=== PATIENT | female | born 2000 | race Caucasian/White ===

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

== ENCOUNTER 2023-05-01 16:33 | Outpatient (CLI) | payer OTHER, SELFPAY ==
--- NOTE | ~2023-05-01 | US_ITS ---
EXAMINATION: US axilla LT DATE: 05/01/2023 17:20 INDICATION: Palpable lump at the left axilla TECHNIQUE: Multiple grayscale and Doppler ultrasound images of the region of concern at the left axil la were obtained. COMPARISON: None FINDINGS: Normal appearance to the subcutaneous fat, underlying musculature and deeper still humeral head at th e region of concern. No joint effusion. No other abnormal masses or fluid collections identified. IMPRESSION: 1. No abnormal masses or fluid collections identified at the region of concern which overlies the lef t humeral head. Reviewed, dictated and finalized at [facility]. IMPRESSION: 1. No abnormal masses or fluid collections identified at the region of concern which overlies the left humeral head.
== END 2023-05-01 16:34 | disposition home or self-care (01) ==
PROVIDERS: PCP Physician Assistant; Visit Provider Physician Assistant
DX: R22.2 Localized swelling, mass and lump, trunk (principal)
CPT/HCPCS: 76882

== ENCOUNTER 2023-05-27 13:09 | Emergency (ER) | payer OTHER, SELFPAY ==
[2023-05-27 13:26] VITALS: BP 125/59; PULSE 108; RESP 16; TEMP 36.6; O2SAT 100
--- NOTE | 2023-05-27 13:47 | ED.URI ---
HPI - URI/Sore Throat General Chief Complaint: Upper Respiratory Infection Stated Complaint: chest congestion,cough Time Seen by Provider: 05/27/23 13:47 Source: patient and RN notes reviewed Mode of arrival: ambulatory Limitations: no limitations History of Present Illness HPI Narrative: Patient presents today with a one-week history of body aches, cough, wheezing, sore throat, nasal congestion. She has been taking Tylenol, ibuprofen, Sudafed without much relief. She has also been using her albuterol rescue inhaler 2-3 times per day, which does provide some relief. History of asthma Related Data Home Medications Medication Instructions Recorded Confirmed albuterol sulfate 90 mcg/actuation 2 puff inhalation Q4-6H 04/23/20 05/27/23 aerosol inhaler citalopram 20 mg tablet (Celexa) 30 mg PO DAILY 04/23/20 05/27/23 montelukast 10 mg tablet 10 mg PO DAILY 04/23/20 05/27/23 (Singulair) cholecalciferol (vitamin D3) 25 25 mcg PO DAILY 09/24/20 05/27/23 mcg (1,000 unit) capsule multivitamin (Daily Multi-Vitamin 1 tablet PO DAILY 09/24/20 05/27/23 tablet) cyanocobalamin (vitamin B-12) 1,000 mcg PO DAILY 05/27/23 05/27/23 1,000 mcg tablet Allergies Allergy/AdvReac Type Severity Reaction Status Date / Time Quinolones Allergy Unknown Other Verified 06/14/21 14:39 amoxicillin [From Augmentin] AdvReac Mild hives Verified 06/14/21 14:39 clavulanic acid AdvReac Mild hives Verified 06/14/21 14:39 [From Augmentin] Review of Systems Review of Systems: CONSTITUTIONAL: Denies fever, chills, or sweats.+ body aches EYES: Denies visual changes, redness, or discharge. ENT: Denies rhinorrhea, or otalgia.+ congestion, sore throat CARDIOVASCULAR: Denies chest pain, palpitations, or edema. RESPIRATORY: + cough, wheezing GASTROINTESTINAL: Denies abdominal pain, nausea, vomiting, or diarrhea. GENITOURINARY: Denies dysuria or hematuria. SKIN: Denies rash, itching, or wounds. MUSCULOSKELETAL: Denies back pain, joint pain, or myalgia. NEUROLOGIC: Denies headache, numbness, tingling, or weakness. PSYCH: Denies depression or anxiety. [facility] Past Medical History Medical History Acid reflux Anxiety Asthma COVID-19 06/19 Depression Dysmenorrhea Menorrhagia Ovarian cyst Ovarian cyst Surgical History Surgical History [place] teeth removed Family History Family History Grandparent Blood clotting disorder Diabetes mellitus Hypertension Thyroid cancer Fibroid tumor FHx: kidney cancer Other No active medical problems Social History Social History Smoking status: Never smoker Alcohol intake: never Substance use: never Living arrangements: with family Occupation/Education: student Gender identity (if verbalized by the patient): Female Spiritual care concerns: No Comments Reviewed Exam Narrative: GENERAL: Well-appearing, well-nourished, and in no acute distress. HEAD: Normocephalic, atraumatic. EYES: EOMI. No redness or drainage. Conjunctivae normal. ENT: Mucous membranes pink and moist. Nares congested. No rhinorrhea. TMs normal bilaterally. Throat mildly erythematous with white postnasal drainage. Uvula midline. NECK: Normal AROM. Supple. No lymphadenopathy. CHEST: No respiratory distress. Clear to auscultation. HEART: Regular rate and rhythm. No murmur appreciated. Normal peripheral pulses. EXTREMITIES: Normal range of motion. No edema. SKIN: Warm, dry, no rash. Capillary refill normal. Normal skin turgor. NEURO: No focal deficits. Alert and oriented x3. Gait steady. PSYCH: Normal affect. No signs of depression or anxiety. Course Course Level of Care: Express Care Visit Vital Signs Vital signs: Vital Signs Temperature
== END 2023-05-27 14:01 | disposition home or self-care (01) ==
PROVIDERS: Emergency Provider Nurse Practitioner; PCP Physician Assistant
DX: J02.0 Streptococcal pharyngitis (principal); J45.901 Unspecified asthma with (acute) exacerbation; Z20.822 Contact with and (suspected) exposure to COVID-19; K21.9 Gastro-esophageal reflux disease without esophagitis; F41.9 Anxiety disorder, unspecified; F32.A Depression, unspecified
CPT/HCPCS: 87426; 87804; 87880; 99213; C9803; G0463

== ENCOUNTER 2023-07-02 17:51 | Emergency (ER) | payer OTHER, SELFPAY ==
[2023-07-02 18:10] VITALS: BP 143/82; PULSE 103; RESP 16; TEMP 36.8; O2SAT 100
[2023-07-02 18:12] VITALS: BP 143/82; PULSE 103; RESP 16; TEMP 36.8; O2SAT 100
--- NOTE | 2023-07-02 18:34 | ED.URI ---
HPI - URI/Sore Throat General Chief Complaint: Upper Respiratory Infection Stated Complaint: Cough Time Seen by Provider: 07/02/23 18:15 Source: patient Mode of arrival: ambulatory Limitations: no limitations History of Present Illness HPI Narrative: Astrid is a 22-year-old female patient presenting to clinic today with complaints of a cough and sore throat times 1 week. She reports no fever or chills. Denies any chest pain or shortness of breath. States she has recently got over strep throat a couple weeks ago. She works in a daycare setting MD elicited complaint: sore throat and nasal congestion Related Data Home Medications Medication Instructions Recorded Confirmed albuterol sulfate 90 mcg/actuation 2 puff inhalation Q4-6H 04/23/20 07/02/23 aerosol inhaler citalopram 20 mg tablet (Celexa) 30 mg PO DAILY 04/23/20 07/02/23 montelukast 10 mg tablet 10 mg PO DAILY 04/23/20 07/02/23 (Singulair) cholecalciferol (vitamin D3) 25 25 mcg PO DAILY 09/24/20 07/02/23 mcg (1,000 unit) capsule multivitamin (Daily Multi-Vitamin 1 tablet PO DAILY 09/24/20 07/02/23 tablet) cyanocobalamin (vitamin B-12) 1,000 mcg PO DAILY 05/27/23 07/02/23 1,000 mcg tablet citalopram 10 mg tablet 10 mg DIRECTED 07/02/23 07/02/23 Allergies Allergy/AdvReac Type Severity Reaction Status Date / Time Quinolones Allergy Unknown Other Verified 06/14/21 14:39 amoxicillin [From Augmentin] AdvReac Mild hives Verified 06/14/21 14:39 clavulanic acid AdvReac Mild hives Verified 06/14/21 14:39 [From Augmentin] Review of Systems Review of Systems: Pertinent positives per HPI. Patient denies any fever, chills, rash, headache, visual changes, dizziness, shortness of breath, chest pain, palpitations, nausea, vomiting, diarrhea, constipation, abdominal pain, or any urinary issues. PMFSH Past Medical History Medical History Acid reflux Anxiety Asthma COVID-19 06/19 Depression Dysmenorrhea Menorrhagia Ovarian cyst Ovarian cyst Surgical History Surgical History [place] teeth removed Family History Family History Grandparent Blood clotting disorder Diabetes mellitus Hypertension Thyroid cancer Fibroid tumor FHx: kidney cancer Other No active medical problems Social History Social History Smoking status: Never smoker Alcohol intake: never Substance use: never Living arrangements: with family Occupation/Education: student Gender identity (if verbalized by the patient): Female Spiritual care concerns: No Comments At the time of my signature, I reviewed and agree with the nursing past medical, surgical, social, and family history. There is no relevant family history pertinent to the patient complaint. Exam Narrative: General: Well-developed, well nourished, in no apparent distress Head: Normocephalic, atraumatic Eyes: Pupils equally round and reactive to light bilaterally, EOM intact, sclera and conjunctive clear, no discharge, lids normal Ears: TMs intact and clear, ear canals clear, no drainage, grossly hearing normal. Nose: Nares patent, clear discharge, no inflammation, no sinus tenderness. Mouth: Oral pharynx red without lesions or masses, good dentition, MMM. Neck: Supple, trachea midline, no enlargement of anterior or posterior cervical nodes, no thyroid masses or goiter palpable. Cardio: Regular rate and rhythm, s1 and s2 normal, no murmur appreciated. Resp: Clear to auscultation bilaterally, no rhonchi, rales, wheezing or rubs Course Course Emergency Course: Portions of this record may have been created with voice recognition software. Level of Care: Express Care Visit Vital Signs Vital signs: Vital Signs Temperature 36.8 C 12/
== END 2023-07-02 18:45 | disposition home or self-care (01) ==
PROVIDERS: Emergency Provider Nurse Practitioner Family; PCP Physician Assistant
DX: J06.9 Acute upper respiratory infection, unspecified (principal); J02.9 Acute pharyngitis, unspecified; K21.9 Gastro-esophageal reflux disease without esophagitis; J45.909 Unspecified asthma, uncomplicated; F41.9 Anxiety disorder, unspecified; F32.A Depression, unspecified; Z86.16 Personal history of COVID-19
CPT/HCPCS: 87081; 87880; 99213; G0463

== ENCOUNTER 2023-12-25 13:23 | Outpatient (RCR) | payer OTHER, SELFPAY ==
[2023-12-25 13:30] VITALS: BMI 33.5
[2023-12-25 13:31] VITALS: BMI 33.5
== END 2024-03-10 11:09 | disposition home or self-care (01) ==
LOC: ANHDMC 13:23
PROVIDERS: PCP Physician Assistant; Visit Provider Physician Assistant
DX: E28.2 Polycystic ovarian syndrome (principal); Z71.3 Dietary counseling and surveillance
CPT/HCPCS: 97802

== ENCOUNTER 2024-02-10 12:46 | Emergency (ER) | payer OTHER, SELFPAY ==
--- NOTE | 2024-02-10 12:48 | ED.GENADULT ---
HPI - General Adult General Chief complaint: Upper Respiratory Infection Stated complaint: head congestion Time Seen by Provider: 02/10/24 12:48 Source: patient Mode of arrival: ambulatory Limitations: no limitations History of Present Illness HPI narrative: 23-year-old female patient presents to the [facility] with complaints of a head cold and ongoing congestion. Patient states this has been going on for approximately 2 weeks and has just been gradually getting worse. Patient states that she is blowing out green snot from the nose, congestion, a slight ear pain and throat irritation. Patient denies any fevers, body aches or chills. Patient states she does have a history of asthma and has used her inhaler a couple times but not having any cough and denies any shortness of breath at this time. Related Data Home Medications Medication Instructions Recorded Confirmed albuterol sulfate 90 mcg/actuation 2 puff inhalation Q4-6H 04/23/20 07/02/23 aerosol inhaler citalopram 20 mg tablet (Celexa) 30 mg PO DAILY 04/23/20 07/02/23 montelukast 10 mg tablet 10 mg PO DAILY 04/23/20 07/02/23 (Singulair) cholecalciferol (vitamin D3) 25 25 mcg PO DAILY 09/24/20 07/02/23 mcg (1,000 unit) capsule multivitamin (Daily Multi-Vitamin 1 tablet PO DAILY 09/24/20 07/02/23 tablet) cyanocobalamin (vitamin B-12) 1,000 mcg PO DAILY 05/27/23 07/02/23 1,000 mcg tablet citalopram 10 mg tablet 10 mg DIRECTED 07/02/23 07/02/23 Allergies Allergy/AdvReac Type Severity Reaction Status Date / Time Quinolones Allergy Unknown Other Verified 06/14/21 14:39 amoxicillin [From Augmentin] AdvReac Mild hives Verified 06/14/21 14:39 clavulanic acid AdvReac Mild hives Verified 06/14/21 14:39 [From Augmentin] Review of Systems Review of Systems: CONSTITUTIONAL: Denies fever, chills, or sweats. EYES: Denies visual changes, redness, or discharge. ENT: Positive rhinorrhea, congestion, sore throat, and otalgia. CARDIOVASCULAR: Denies chest pain, palpitations, or edema. RESPIRATORY: Positive cough denies dyspnea. GASTROINTESTINAL: Denies abdominal pain, nausea, vomiting, or diarrhea. GENITOURINARY: Denies dysuria or hematuria. SKIN: Denies rash or itching. MUSCULOSKELETAL: Denies back pain, joint pain, or myalgia. NEUROLOGIC: Denies headache, numbness, or weakness. PSYCHIATRIC: Denies anxiety or depression. [facility] Past Medical History Medical History Acid reflux Anxiety Asthma COVID-19 06/19 Depression Dysmenorrhea Menorrhagia Ovarian cyst Ovarian cyst Surgical History Surgical History [place] teeth removed Family History Family History Grandparent Blood clotting disorder Diabetes mellitus Hypertension Thyroid cancer Fibroid tumor FHx: kidney cancer Other No active medical problems Social History Social History Smoking status: Never smoker Alcohol intake: never Substance use: never Living arrangements: with family Occupation/Education: student Gender identity (if verbalized by the patient): Female Spiritual care concerns: No Comments At the time of my signature I agree with nursing past medical history, surgical, social, and family history. There is no relevant family history pertinent to the presenting complaint. Exam Narrative: GENERAL: Well-appearing, well-nourished, and in no acute distress. HEAD: Normocephalic, atraumatic. EYES: PERRLA and EOMI. ENT: Nares with erythema edema noted bilaterally, no rhinorrhea or epistaxis. Mucous membranes moist. Posterior pharynx with no erythema, tonsillar enlargement, exudates or lesions present. Bilateral TMs are clear no erythema or foreign bodies canal. NECK: Supple. No lymphadenopathy CHEST: Clear to auscultation. No respirator
[2024-02-10 12:55] VITALS: BP 122/78; PULSE 81; RESP 16; TEMP 37.3; O2SAT 99
== END 2024-02-10 13:12 | disposition home or self-care (01) ==
PROVIDERS: Emergency Provider Nurse Practitioner Family; PCP Physician Assistant
DX: J06.9 Acute upper respiratory infection, unspecified (principal); K21.9 Gastro-esophageal reflux disease without esophagitis; J45.909 Unspecified asthma, uncomplicated; F41.9 Anxiety disorder, unspecified; F32.A Depression, unspecified; Z86.16 Personal history of COVID-19
CPT/HCPCS: 99213; G0463